=== PATIENT | male | born 2000 | race Caucasian/White ===

== ENCOUNTER 2025-03-02 21:54 | Emergency (ER) | payer SELFPAY ==
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
[2025-03-02 21:56] VITALS: BP 126/63; PULSE 57; RESP 18; TEMP 35.8; O2SAT 97; BMI 24.4
--- NOTE | 2025-03-02 22:24 | PC.NURSE ---
Patient is sitting in room with mom. Patient talks to mom and states that he has been through this multiple times and this is what they always do and that we just stick him in a room and just monitor him waiting for a paycheck. Nurse walks into the room to get some blood for labs. Patient states My first attempt of suicide was at 4 years old. I've been dealing with this my whole f*cking life.
--- NOTE | 2025-03-02 22:38 | PC.NURSE ---
Patient states unless you want to fight about it, this is as undressed as I'm willing to get. Wearing leggings with shorts over them and shirt. States I thought this was a pro choice state. Can't be pro choice and anti suicide.
[2025-03-02 22:42] LABS: Add Manual Diff / Slide Review NO; Hematocrit 46.6 % (41-53); Hemoglobin 15.8 g/dL (13.5-17.5); Lymphocytes Absolute Auto 1200 /uL (1100-4500); Mean Corpuscular HGB Conc 33.8 % (30-36); Mean Corpuscular Hemoglobin 30.9 PG (26-34); Mean Corpuscular Volume 91.3 fL (80-100); Platelet Count 218 X10^3/uL (150-400)
[2025-03-02 22:47] VITALS: BP 141/70; PULSE 60; RESP 22; O2SAT 100
--- NOTE | 2025-03-02 22:49 | PC.NURSE ---
In room checking pt's wounds. Pt reports if you try to send me to a facility, I will force my way out of here
--- NOTE | 2025-03-02 22:54 | PC.NURSE ---
Patient speaking to his mom. States I'm going to get put on a 6404 hold and stuff me into a mental institution until I'm stable. Repeats no med to fix my problems and a psychiatrist will let me go back into the world.
--- NOTE | 2025-03-02 23:00 | PC.NURSE ---
EMAIL DESIGNER Note: Offered pt restroom, refused UA. States im good, i'll just . proceeded to tell mom we we are going to be in here until 3am, they are going to sign my rights away.
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
--- NOTE | 2025-03-02 23:18 | PC.NURSE ---
Pt talking with mom. States this is what the mental institute will be like, they don't help anyone unless you are actively dying. They can hold my nuts or they can call the crop and soil technician and put me in shackles. Im getting out of here. you're about to watch me get drug out of here.
--- NOTE | 2025-03-02 23:23 | PC.NURSE ---
Apd called to assist to ensure no weapons on patient. [employer] in to department and ensured patient has no weapons on him.
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
[2025-03-02 23:44] LABS: Acetaminophen < 10 ug/mL (10-30); Alanine Aminotransferase 19 IU/L (<50); Albumin 5.1 g/dL (3.5-5.0); Albumin Globulin Ratio 1.7 (1.0-2.8); Alkaline Phosphatase 59 U/L (38-126); Blood Urea Nitrogen 10 mg/dL (9-20); Calcium 9.4 mg/dL (8.4-10.2); Carbon Dioxide 25 mmol/L (22-32); Chloride 103 mmol/L (98-107); Estimated Glomerular Filt Rate > 60 mL/min (>60); Ethanol (ETOH) < 10 mg/dL (<10); Globulin 3.0 g/dL (1.7-4.1); Glucose 123 mg/dL (70-99); HEMOLYSIS < 15 (0-50); Potassium 3.8 mmol/L (3.4-5.1); Salicylate < 1.0 mg/dL (<20); Sodium 139 mmol/L (137-145); Total Protein 8.1 g/dL (6.3-8.2)
[2025-03-03] VITALS (28 sets, daily range): BP systolic 90–114; BP diastolic 50–71; PULSE 44–59; RESP 16; TEMP 36.8; O2SAT 96–98
--- NOTE | 2025-03-03 | PC.NURSE ---
PD with with pt.
[2025-03-03 00:14] LABS: TSH w/ Reflex to FT4 2.76 uIU/mL (0.47-4.68)
[2025-03-03] MEDS: MIDAZOLAM 5 MG/ML VIAL IM (00:24)
[2025-03-03] MEDS: diphenhydrAMINE 50 MG/ML VIAL IM (00:24)
[2025-03-03] MEDS: HALOPERIDOL 5 MG/ML VIAL 10 MG IM (00:24)
[2025-03-03] MEDS: TET,DIPH,PERTUSS(ACELL),VAC/PF 0.5 ML SYRINGE IM (00:26)
[2025-03-03] MEDS: LIDOCAINE 1% W/EPI 10ML 8 ML INJ (00:26)
--- NOTE | 2025-03-03 00:52 | PC.WOUNDPHOT ---
laceration to right forearm [id number]
--- NOTE | 2025-03-03 02:08 | PC.NURSE ---
APPLICATIONS PROGRAMMER ANALYST note: at 2340 PD was called d/t the pt verbalizing threats during doctor assessment. Pt stood up and stated if your going to send me to the mental hospital your going to have to bring in the big dogs in, im gonna fight with everything I got. PD arrived at approx. 2349. Pt stated I fucking told you, as police officers entered pt room. police verbalized policy and procedure for being here. Pt stated you can stay over there, you can't lock me, you can't send me to the mental hospital. Im not in danger, if I was going to bleed out I would've already. aircraft electronics technical officer tried to de-escalate, pt stated if this dude wants to sew me up, he needs to do so w/o sedatives. [place] done this before, including being as violent as I can w/o you guys getting me or shooting me. my goal is not to be alive. Police negotiated with pt and pt agreed to medications and wound care if mom was in the room.
--- NOTE | 2025-03-03 05:24 | PC.NURSE ---
INSEMINATION WORKER Note: I noticed pts bandage was removed from suture site- RN notified
--- NOTE | 2025-03-03 05:25 | PC.NURSE ---
THREAD SPOOLER note: vitals done- Pt off monitor, ok per RN
--- NOTE | 2025-03-03 07:49 | PC.NURSE ---
[facility] called for dispatch, spoke to Madelin. Will get patient information sent over.
--- NOTE | 2025-03-03 07:56 | PC.NURSE ---
ACTIVE DIRECTORY SYSTEMS ADMINISTRATOR Note: Patient requested to talk to doctor about wanting to leave. Dr. Daniela herr.
--- NOTE | 2025-03-03 08:20 | PC.NURSE ---
BAGGAGE HANDLING SUPERVISOR Note: Patient making statements, I might actually hurt someone., I will pop off if I don't get a cigarette. Patients mother at bedside.
--- NOTE | 2025-03-03 09:07 | PC.NURSE ---
SENIOR WEB DESIGNER Note: Verbal from Dr. Suarez that 1:1 sitter no longer needed. Staff will be doing 15 min checks.
[2025-03-03 09:28] LABS: UR Morphine/Opiate cutoff 300 Negative (Negative); Ur Specific Gravity Normal (Normal); Urine MDMA Negative (Negative); Urine Methamphetamines Negative (Negative); Urine Tetrahydrocannabinol Positive (Negative); Urine Tricyclic Antidepressant Negative (Negative)
--- NOTE | 2025-03-03 10:58 | CM.SWNOTE ---
ED PSYCHIATRIC CNS Assessment Note: Interventions: PSYCHIATRIC CNS completed [facility] referral form via website, provided contact information to patient for follow up. PSYCHIATRIC CNS called [facility] Crisis Line and provided information of patient. It is reported pt will have a follow [place] [facility] [place] at approximately [phone]. PSYCHIATRIC CNS provided [place] healthplanfinder information to patient and mother and strongly encouraged for them to call after discharge to establish insurance. PSYCHIATRIC CNS also provided [employer] packet. PSYCHIATRIC CNS - Head Piece Assembler Assessment PSYCHIATRIC CNS - Head Piece Assembler Assessment Start: 03/03/25 10:28 Freq: Status: Active Protocol: Document 03/03/25 10:28 MW (Rec: 03/03/25 10:58 MW Desktop) PSYCHIATRIC CNS/Head Piece Assembler Assessment Time Spent with Patient Start date 03/03/25 Visit Start Time 09:00 End date 03/03/25 Visit End Time 09:30 Total time Care 30 minutes Management spent on patient visit-in minutes Mental Health Screening Include Onset, Duration, Intensity Presenting Problem Patient presented to the ED with a deep laceration to forearm as an attempt to harm self. Patient states the laceration last night was because of everything building up. Precipitating Event( Patient states he recently had a falling out with a s) best friend which has caused increased stress. Patient explains he has been moving back and forth from [place] and [place] (where his family lives) and has found difficulty in finding employment because of it. Since his family has moved from [place] in 2019, they have been finding difficulty in establishing care and employment in [place] which has been a main source of stress for patient. Patient explains he has Dissociative Identity Disorder (not sure if officially diagnosed) and does not have talk therapy or medication therapy established. Patient Strengths Patient is communicative and supported by mother Marcella. Current Behavioral None established. Health Provider(s) Include Facility, Provider, Ph. # Psych. Hx Mental Pt report of Dissociative Identity Disorder with no Health and [employer] formal diagnosis or medications. Dependency Family Hx of None reported. Behavioral Abuse Psychiatric 2018 - Facility in [place] Hospitalizations ( Early 2024 - Facility in [place] date(s)/location) Psychosocial Patient is a 24yo male, resident of [place] in [place] & with his family (parents and siblings). Patient has Support Systems mother Marcella, at bedside for support. School/Work Patient is currently unemployed. Legal Concerns Legal Matters - None reported. Outstanding Issues Mental Status Orientation (Person/ AOx3 Place/Time) Affect (Congruent Labile, full range, congruent with mood with Mood?) Thought Content - None reported, none assessed during assessment. Specify/Describe Obsessions, Delusions, Hallucinations Thought Processes ( coherent, cirumstantial. Logical-Coherent- Goal Directed- Detailed-Tangential- Circumstantial- Logical-Disorganized -Thought Blocking) Speech (Normal-Slow- normal, loud [place]-Dffzn-Dzpg- Loud-Pressured) Motor (Normal- excessive (agitated due to nicotine withdrawal) Jcrftmzmj-Dkhi-Fmalw ) Insight (Good-Fair- Fair Poor/Limited) Judgement (Good-Fair Fair -Poor/Limited) Impulse Control ( Impaired Adequate-Impaired) Memory (Immediate- Recent Recent-Remote, Impaired-Intact) Concentration ( Intact Intact-Impaired) Attention (Intact- Intact Impaired) Behavior ( Appropriate Appropriate- Inappropriate) Additional Comment Patient is calm, cooperative and communicative during assessment. Risk Assessment Suicidal Ideation ( No Plan) Homicidal Ideation ( No Plan) Comment [place]-SUICIDE SEVERITY RATING SCALE 1) Have you wished you were or wished you could go to sleep and not wake up? NO 2) Have you actually had any thoughts of killing yourself? NO 3) Have you been thinking about how you might do this? NO 4) Have you had these thoughts and had some intention of acting on them? NO 5) Have you started to work out or worked out the details of how to kill yourself? Do you intend to carry out this plan? NO 6) Have you ever done anything, started to do anything, or prepared to do anything to end your life? YES If YES, ask: Was this within the past three months? YES Intervention Intervention Reviewed chart and discussed with ED Provider pt's medical status and discharge needs. It is reported that pt was agitated overnight and could be a reaction to the IM medications provided to assist with repairing laceration on arm. Patient is now cooperative with sanam for safety with ED Provider. ED PSYCHIATRIC CNS meets with patient. Patient endorses feeling regretful about the laceration and is willing to contract for safety with mother involved. Patient states a big barrier to obtaining assistance with mental health is not having insurance, I applied when I had a job that I don't have now, and they said I make too much. Patient denies SI/HI at this time, feels safe with discharging home with family. ED PSYCHIATRIC CNS and patient discuss goals of care. Patient explains they are agreeable to intensive outpatient treatment and OT follow up. Patient mother agreeable with plans, will be supervising patient to establish insurance and care with [facility]. At this time, it is the opinion of this PSYCHIATRIC CNS that patient would benefit from IOP and [facility] follow up. Patient able to verbalize return precautions or when to call Crisis Line, pt mother also provided with Crisis Line number so she can call if pt not at baseline. PSYCHIATRIC CNS informs ED provider, Dr. Suarez, who indicates agreement. PSYCHIATRIC CNS informs RN Sparkle and Alessandra. Plan RA Plan Once patient is medically clear, patient will discharge home with safety plan with mother. Patient will have follow up with [facility] services, [facility] IOP referral and will sign up for Medicaid insurance. AL Clemons
== END 2025-03-03 09:58 | disposition home or self-care (01) ==
PROVIDERS: Family Medicine; Emergency Provider Emergency Medicine
DX: T14.91XA Suicide attempt, initial encounter (principal); X78.1XXA Intentional self-harm by knife, initial encounter; S51.812A Laceration without foreign body of left forearm, initial encounter; S51.811A Laceration without foreign body of right forearm, initial encounter; Z23 Encounter for immunization
CPT/HCPCS: 12002; 36415; 80053; 80305; 80320; 80329; 84443; 85025; 90471; 96372; 99284; 90715; G0480; J1200; J1630; J2250